=== PATIENT | female | born 1955 | race Caucasian/White ===

== ENCOUNTER → 2025-01-10 | Outpatient (CLI) | payer MEDICARE, SELFPAY ==
--- NOTE | 2025-01-10 | XR_ITS ---
Examination: Lumbar spine 3 views Technique one AP lateral coned lateral lower lumbar spine 3 views Date and time: January 10, 2025 1307 hours INDICATIONS: Low back pain beginning 10 years ago. FINDINGS: Prominent osteopenia. Lumbar levoscoliosis 12 degrees. No lumbar acute fracture Diffuse [id number] lumbar disc narrowing, most prominent L4-L5, L5-S1 IMPRESSION: Diffuse [id number] lumbar disc narrowing, most prominent L4-L5, L5-S1
--- NOTE | 2025-01-10 | XR_ITS ---
Examination:Left hip AP, lateral, AP pelvis 3 views Technique: Hip AP lateral, AP pelvis, 3 views Exam date and time:January 10, 2025 1303 hours INDICATIONS: Left hip pain 6 years. FINDINGS: Moderate to advanced left hip osteoarthritis. Sclerotic areas in radiolucency in the left femoral head Mild narrowing right hip joint No hip or pelvic fracture IMPRESSION: Moderate to advanced left hip osteoarthritis Suspicious for avascular necrosis involving the left femoral head, consider MRI hip without contrast follow-up.
== END | disposition home or self-care (01) ==
PROVIDERS: PCP Internal Medicine; Referring Provider Internal Medicine; Visit Provider Internal Medicine
DX: M16.12 Unilateral primary osteoarthritis, left hip (principal); M89.8X8 Other specified disorders of bone, other site; M48.061 Spinal stenosis, lumbar region without neurogenic claudication; M48.07 Spinal stenosis, lumbosacral region
CPT/HCPCS: 72100; 73502